=== PATIENT | male | born 1940 | race Caucasian/White ===

== ENCOUNTER → 2016-08-05 | Outpatient (CLI) | payer MEDICARE ==
[2016-08-05 13:22] LABS: Blood Urea Nitrogen 22 mg/dL (9-20); Non-African American GFR(MDRD) >60 (>60 ml/min/1.73 sqM)
--- NOTE | 2016-08-05 13:57 | CT ---
EXAMINATION TYPE: CT soft tissue neck w con DATE OF EXAM: 08/05/2016 1:49 PM COMPARISON: NONE HISTORY: sore throat CT DLP: 379.5 mGycm CONTRAST: Patient injected with 100 ml mL of Omnipaque 300. TECHNIQUE: Axial images at 3 mm thick sections. Reconstructed images in the coronal plane and sagitt al plane are reviewed. FINDINGS: Limited CT sections are obtained the lung apices. The lung apices appear clear. CT neck: The torus tubarius and fossa of Rosenmuller are normal. Front End [employer]er spaces are normal. Para nasal sinuses and mastoid air cells are clear. Parotid glands appear normal and symmetrical. Submandibular glands, are normal. Parapharyngeal spac es are normal. No suspicious adenopathy is evident. The hypopharynx appears within normal limits. Vocal cord level appear symmetrical. Thyroid as visualized is normal. Degenerative changes are within the cervical spine. Degenerative disc changes are present. The proximal ascending aortic arch is 4.0 cm in transverse dimension. This is incompletely visualized . There may be some fusiform prominence of the mid aortic arch measuring 3.8 cm. IMPRESSIONS: 1. No suspicious acute changes. 2. There is incomplete evaluation mild prominence of the aorta. Consider CT chest with contrast to ev aluate the aorta.
== END | disposition home or self-care (01) ==
LOC: RADCTMAIN 12:38
PROVIDERS: ATTEND Otolaryngology
DX: K22.8 Other specified diseases of esophagus (principal)
CPT/HCPCS: 82565; 84520; 70491; 36415; Q9967

== ENCOUNTER → 2016-08-26 | Outpatient (CLI) | payer MEDICARE ==
--- NOTE | 2016-08-26 07:36 | CT ---
EXAMINATION TYPE: CT chest/abdomen without contrast DATE OF EXAM: 08/26/2016 7:13 AM COMPARISON: NONE HISTORY: sore throat for 3 months. No chest complaints at time of service TECHNIQUE: Helical acquisition through the chest and abdomen were obtained without intravenous contra st. The data was reformatted in axial, coronal and sagittal projections. CT DLP: 461.8 mGycm Automated exposure control for dose reduction was used. FINDINGS: Lungs are clear. There is no significant axillary, mediastinal or hilar adenopathy. The root of the aorta is dilated at 4.3 cm. At the level of the proximal arch, the aorta is aneurysma l measuring 4 cm. At the level of the proximal descending thoracic aorta the aorta is aneurysmal haydee uring 3.3 cm. The level of the aortic hiatus, the aorta is normal in caliber measuring 2.6 cm. There is no pleural or pericardial fluid. The heart is not enlarged. There is some coronary artery and other vascular calcifications. Within the abdomen, the gallbladder is contracted. The liver and spleen appear normal. Both adrenal glands appear normal. There is a 7.6 mm nonobstructing calculus in the anterior lower pole calyx of the left kidney. The ki dneys are otherwise normal. Pancreas is unremarkable. There is no significant retroperitoneal adenopathy. Visualized bowel loops are normal. There is no free fluid and no free air identified. There is a tiny sclerotic focus in the right lateral aspect of the T2 vertebral body anteriorly. This may represent a bone island. No other sclerotic foci are seen. IMPRESSION: 1. 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 2. NONOBSTRUCTING LEFT RENAL CALCULUS.
== END | disposition home or self-care (01) ==
LOC: RADCTMAIN 06:50
PROVIDERS: ATTEND Thoracic Surgery (Cardiothoracic Vascular Surgery)
DX: I71.2 Thoracic aortic aneurysm, without rupture (principal); N20.0 Calculus of kidney
CPT/HCPCS: 71250

== ENCOUNTER 2017-04-22 10:55 | Emergency (ER) | payer MEDICARE ==
[2017-04-22] MEDS ORDERED: SODIUM CHLORIDE 0.9% 1,000 ML IV STA (11:21)
--- NOTE | 2017-04-22 11:26 | ED ---
General Adult HPI - General Chief complaint: Neuro Symptoms/Deficit Stated complaint: POSS CVA Time Seen by Provider: 04/22/17 11:12 Source: patient, family, RN notes reviewed Mode of arrival: ambulatory Limitations: no limitations - History of Present Illness Initial comments: Patient is a pleasant 77-year-old male presenting to emergency department with visual change. Onset was 5:15 this morning. Symptoms lasted 20 minutes. Patient had loss of left-sided vision in both right and left eye. Patient states he lost approximately three quarters of his vision on the left side of each eye. Patient did individually test each eye on his own. Patient states he was able to see on the right peripherally with both eyes. No history of similar symptoms previously. Symptoms have resolved and patient still feels normal at this time. Patient did see his rn correctional, Dr. Lowe prior to arrival who had concern for stroke and recommended he come to the emergency department. Patient states she has a "slight " headache after he was told there is potential of a stroke on the right frontal region. No headache earlier. No weakness. No confusion. No speech problems. - Related Data Home Medications Medication Instructions Recorded Confirmed Aspirin 81 mg PO HS 06/21/14 04/22/17 Hydrochlorothiazide 25 mg PO QAM 06/21/14 04/22/17 Multivitamin [Men's Multi-Vitamin] 1 tab PO QAM 11/10/15 04/22/17 Metoprolol Tartrate [Lopressor] 25 mg PO HS 04/22/17 04/22/17 Metoprolol Tartrate [Lopressor] 50 mg PO QAM 04/22/17 04/22/17 Naproxen Sodium [Aleve] 220 mg PO QAM 04/22/17 04/22/17 Allergies Allergy/AdvReac Type Severity Reaction Status Date / Time No Known Allergies Allergy Verified 04/22/17 11:36 Review of Systems ROS Statement: Those systems with pertinent positive or pertinent negative responses have been documented in the HPI. ROS Other: All systems not noted in ROS Statement are negative. Constitutional: Denies: fever Eyes: Reports: vision change. Denies: eye pain ENT: Denies: ear pain Respiratory: Denies: cough Cardiovascular: Denies: chest pain Endocrine: Denies: fatigue Gastrointestinal: Denies: abdominal pain Genitourinary: Denies: dysuria Musculoskeletal: Denies: back pain Skin: Denies: rash Neurological: Reports: headache (Slight right frontal headache). Denies: weakness, numbness, paresthesias, confusion Past Medical History Past Medical History: Myocardial Infarction ([place]), Prostate Disorder Additional Past Medical History / Comment(s): KIDNEY STONES/BLOOD IN URINE. RECENT RECTAL BLEEDING AND LOWER ABD PAIN. Last Myocardial Infarction Date:: 1986 History of Any Multi-Drug Resistant Organisms: None Reported Past Surgical History: Heart Catheterization Additional Past Surgical History / Comment(s): BILATERAL CATARACTS. Past Anesthesia/Blood Transfusion Reactions: Motion Sickness Additional Past Anesthesia/Blood Transfusion Reaction / Comment(s): HAS NEVER HAD GENERAL ANESTHESIA. Past Psychological History: No Psychological Hx Reported Smoking Status: Former smoker Past Alcohol Use History: Occasional Past Drug Use History: None Reported - Past Family History Father Family Medical History: CVA/TIA General Exam Limitations: no limitations General appearance: alert, in no apparent distress Head exam: Present: atraumatic Eye exam: Present: normal appearance, PERRL, EOMI. Absent: nystagmus Expanded Pupils: Regular, Round: Bilateral, Reactive: Bilateral Posterior chamber: Normal Inspection: Bilateral ENT exam: Present: normal oropharynx Neck exam: Present: normal inspection Respiratory exam: Present: normal lung sounds bilaterally Cardiovascular Exam: Present: regular rate, normal rhythm GI/Abdominal exam: Present: soft. Absent: tenderness Extremities exam: Present: normal inspection Neurological exam: Present: alert, oriented X3, CN II-XII intact. Absent: motor sensory deficit Expanded Patient oriented to: Present: person, place, time Speech: Present: fluid speech Cranial nerves: EOM's Intact: Normal, Facial Sensation: Normal Cerebellar function: Finger to Nose: Normal Sensory exam: Upper Extremity Light Touch: Normal, Lower Extremity Light Touch: Normal Motor strength exam: RUE: 5, LUE: 5, RLE: 5, LLE: 5 Eye Response: (4) open spontaneously Motor Response: (6) obeys commands Verbal Response: (5) oriented Psychiatric exam: Present: normal affect, normal mood Skin exam: Present: normal color Course Vital Signs 04/22/17 04/22/17 04/22/17 10:57 11:05 11:20 Temperature 97.7 F Pulse Rate 89 86 80 Respiratory 16 18 18 Rate Blood Pressure 180/90 184/92 184/96 O2 Sat by Pulse 98 98 98 Oximetry 04/22/17 04/22/17 04/22/17 11:35 11:50 11:55 Temperature Pulse Rate 78 79 75 Respiratory 18 18 18 Rate Blood Pressure 184/91 186/92 176/90 O2 Sat by Pulse 97 99 98 Oximetry 04/22/17 04/22/17 04/22/17 12:05 12:27 12:59 Temperature Pulse Rate 77 80 83 Respiratory 18 18 18 Rate Blood Pressure 178/90 168/87 184/76 O2 Sat by Pulse 100 97 96 Oximetry 04/22/17 04/22/17 13:27 14:19 Temperature Pulse Rate 84 84 Respiratory 18 18 Rate Blood Pressure 186/92 179/90 O2 Sat by Pulse 98 99 Oximetry EKG Findings - EKG Comments: EKG Findings:: Sinus rhythm [address] 142. QRS 112. QT 34. QTC 462. Left axis. Left anterior fascicular block. LVH. No acute ST change. Medical Decision Making - Medical Decision Making Patient reexamined and resting comfortably in bed. Patient remained symptom- free. Case discussed in detail with Dr. Thapa including chest x-ray and history of aneurysm. He did review report and previous computed tomography scan. Dr. Thapa is comfortable with patient going home. He does recommend discontinuing Aleve and taking full aspirin daily. He recommends follow-up in the beginning of the week. This was a clean to patient and patient is comfortable with being discharged. Patient is advised to return for worsening symptoms and advised of other symptoms related to stroke. - Lab Data Result diagrams: 04/22/17 11:20 04/22/17 11:20 Lab Results 04/22/17 04/22/17 04/22/17 Range/Units 11:20 11:20 11:20 WBC 7.5 (3.8-10.6) k/uL RBC 5.49 (4.30-5.90) m/uL Hgb 18.0 H (13.0-17.5) gm/dL Hct 54.2 H (39.0-53.0) % MCV 98.7 (80.0-100.0) fL MCH 32.8 (25.0-35.0) pg MCHC 33.2 (31.0-37.0) g/dL RDW 14.5 (11.5-15.5) % Plt Count 227 (150-450) k/uL Neutrophils % (Manual) 41 % Lymphocytes % (Manual) 40 % Monocytes % (Manual) 15 % Eosinophils % (Manual) 4 % Neutrophils # (Manual) 3.08 (1.3-7.7) k/uL Lymphocytes # (Manual) 3.00 (1.0-4.8) k/uL Monocytes # (Manual) 1.13 H (0-1.0) k/uL Eosinophils # (Manual) 0.30 (0-0.7) k/uL Nucleated RBCs 0 (0-0) /100 WBC Manual Slide Review Performed RBC Morphology Normal PT (9.0-12.0) sec INR (<1.2) APTT (22.0-30.0) sec Sodium 140 (137-145) mmol/L Potassium 4.0 (3.5-5.1) mmol/L Chloride 103 (98-107) mmol/L Carbon Dioxide 26 (22-30) mmol/L Anion Gap 11 mmol/L BUN 22 H (9-20) mg/dL Creatinine 1.19 (0.66-1.25) mg/dL Est GFR (MDRD) Af Amer >60 (>60 ml/min/1.73 sqM) Est GFR (MDRD) Non-Af 59 (>60 ml/min/1.73 sqM) Glucose 97 (74-99) mg/dL Calcium 9.7 (8.4-10.2) mg/dL Total Bilirubin 1.1 (0.2-1.3) mg/dL AST 64 H (17-59) U/L ALT 88 H (21-72) U/L Alkaline Phosphatase 77 (38-126) U/L Total Creatine Kinase 79 (55-170) U/L CK-MB (CK-2) 1.2 (0.0-2.4) ng/mL CK-MB (CK-2) Rel Index 1.5 Troponin I 0.015 (0.000-0.034) ng/mL Total Protein 8.8 H (6.3-8.2) g/dL Albumin 4.5 (3.5-5.0) g/dL 04/22/17 Range/Units 13:05 WBC (3.8-10.6) k/uL RBC (4.30-5.90) m/uL Hgb (13.0-17.5) gm/dL Hct (39.0-53.0) % MCV (80.0-100.0) fL MCH (25.0-35.0) pg MCHC (31.0-37.0) g/dL RDW (11.5-15.5) % Plt Count (150-450) k/uL Neutrophils % (Manual) % Lymphocytes % (Manual) % Monocytes % (Manual) % Eosinophils % (Manual) % Neutrophils # (Manual) (1.3-7.7) k/uL Lymphocytes # (Manual) (1.0-4.8) k/uL Monocytes # (Manual) (0-1.0) k/uL Eosinophils # (Manual) (0-0.7) k/uL Nucleated RBCs (0-0) /100 WBC Manual Slide Review RBC Morphology PT 12.3 H (9.0-12.0) sec INR 1.2 H (<1.2) APTT 25.8 (22.0-30.0) sec Sodium (137-145) mmol/L Potassium (3.5-5.1) mmol/L Chloride (98-107) mmol/L Carbon Dioxide (22-30) mmol/L Anion Gap mmol/L BUN (9-20) mg/dL Creatinine (0.66-1.25) mg/dL Est GFR (MDRD) Af Amer (>60 ml/min/1.73 sqM) Est GFR (MDRD) Non-Af (>60 ml/min/1.73 sqM) Glucose (74-99) mg/dL Calcium (8.4-10.2) mg/dL Total Bilirubin (0.2-1.3) mg/dL AST (17-59) U/L ALT (21-72) U/L Alkaline Phosphatase (38-126) U/L Total Creatine Kinase (55-170) U/L CK-MB (CK-2) (0.0-2.4) ng/mL CK-MB (CK-2) Rel Index Troponin I (0.000-0.034) ng/mL Total Protein (6.3-8.2) g/dL Albumin (3.5-5.0) g/dL - Radiology Data Radiology results: report reviewed (Computed tomography scan of the brain shows no acute process.), image reviewed (Chest x-ray shows no acute process. Redemonstration of the ascending thoracic aortic aneurysm.) Disposition Clinical Impression: Transient cerebral ischemia Disposition: HOME SELF-CARE Condition: Stable Instructions: Transient Ischemic Attack (ED) Additional Instructions: Full aspirin daily. Discontinue Aleve. Please follow-up with Dr. Thapa Tuesday. He will need carotid Doppler and echo done. Return for visual change, headache, confusion, speech problems, weakness, sensation problems, worsening symptoms or other concerns. Referrals: Molly Thapa MD [Primary Care Provider] - 1-2 days Perez Lowe MD [STAFF PHYSICIAN] - 1-2 days Time of Disposition: 15:03
[2017-04-22 11:48] LABS: Anion Gap 11 mmol/L; Aty Lym Flag Slight; CH 34.2; CHCM 34.8; Calcium 9.7 mg/dL (8.4-10.2); Carbon Dioxide 26 mmol/L (22-30); Chloride 103 mmol/L (98-107); Glucose 97 mg/dL (74-99); HCT 54.2 % (39.0-53.0); HDW 2.76; MCH 32.8 pg (25.0-35.0); MCHC 33.2 g/dL (31.0-37.0); MCV 98.7 fL (80.0-100.0); Mean Platelet Volume 7.3; Non-African American GFR(MDRD) 59 (>60 ml/min/1.73 sqM); RBC 5.49 m/uL (4.30-5.90); RDW 14.5 % (11.5-15.5); Sodium 140 mmol/L (137-145); Total Bilirubin 1.1 mg/dL (0.2-1.3); Total Protein 8.8 g/dL (6.3-8.2); WBC 7.5 k/uL (3.8-10.6); WBC (Perox) 7.77
[2017-04-22 11:56] VITALS: RESP 18
[2017-04-22 12:00] LABS: AST 64 U/L (17-59); Blood Urea Nitrogen 22 mg/dL (9-20)
[2017-04-22 12:01] LABS: ALT 88 U/L (21-72); Alkaline Phosphatase 77 U/L (38-126)
--- NOTE | 2017-04-22 12:32 | XR ---
EXAMINATION TYPE: XR chest 2V DATE OF EXAM: 04/22/2017 COMPARISON: 08/26/2016 HISTORY: Blurred vision and history of heart attack. TECHNIQUE: Frontal and lateral views of the chest are obtained. FINDINGS: There is no focal air space opacity, pleural effusion, or pneumothorax seen. There is tor tuosity of the descending and ascending thoracic aorta and there is known ascending thoracic aorta an eurysm. The cardiac silhouette size is within normal limits. The osseous structures are intact. IMPRESSION: 1. No acute pulmonary process. 2. Redemonstration of ascending thoracic aortic aneurysm, more accurately measured on CT.
[2017-04-22 12:33] LABS: Creatine Kinase MB 1.2 ng/mL (0.0-2.4); Troponin I 0.015 ng/mL (0.000-0.034)
--- NOTE | 2017-04-22 12:38 | CT ---
EXAMINATION TYPE: CT brain wo con DATE OF EXAM: 04/22/2017 COMPARISON: NONE HISTORY: 77 year-old male with weakness, neurological defectis, Possible CVA TECHNIQUE: Examination was done in axial plane without intravenous contrast. Coronal and sagittal r econstructions performed. CT DLP: 1100 mGycm Automated exposure control for dose reduction was used. FINDINGS: There is no evidence of acute intracranial hemorrhage, acute ischemic changes, mass, mass-effect, or extra-axial fluid collection. There is no effacement of cerebral sulci or basal subarachnoid cister ns. There is no hydrocephalus. There is no midline shift. Hollingsworth-white matter distinction is preserv ed. Mild to moderate generalized supratentorial volume loss. Some scattered mild patchy white matter hypo densities in both cerebral hemispheres. Stable focal calcification in the proximal M1 segment right M CA. Moderate mucosal thickening throughout the ethmoid air cells. Mastoid air cells well pneumatized. IMPRESSION: No acute intracranial abnormality seen. Stable mild to moderate atrophy and mild changes of chronic s mall vessel ischemic disease. Moderate chronic ethmoid sinus disease.
[2017-04-22 13:07] LABS: Add Differential Manual Differential
[2017-04-22 13:09] LABS: Manual Review Performed; Nucleated Red Blood Cells 0 /100 WBC (0-0); RBC Morphology Normal; Total Cells Counted 100
[2017-04-22 13:32] LABS: INR 1.2 (<1.2); Partial Thromboplastin Time 25.8 sec (22.0-30.0); Prothrombin Time 12.3 sec (9.0-12.0)
[2017-04-22 15:06] VITALS: BP 159/83; PULSE 76; TEMP 97.6
== END 2017-04-22 15:07 | disposition home or self-care (01) ==
LOC: EC 10:55
DX: G45.9 Transient cerebral ischemic attack, unspecified (principal); I71.2 Thoracic aortic aneurysm, without rupture; I25.2 Old myocardial infarction; Z87.891 Personal history of nicotine dependence; Z79.1 Long term (current) use of non-steroidal anti-inflammatories (NSAID); Z79.82 Long term (current) use of aspirin; Z79.899 Other long term (current) drug therapy; Z82.3 Family history of stroke
CPT/HCPCS: 36415; 70450; 71020; 80053; 82550; 82553; 84484; 85025; 85610; 85730; 93005; 96360; 96361; 99285

== ENCOUNTER → 2017-05-27 | Outpatient (CLI) | payer MEDICARE ==
[~2017-05-27] MED LIST: REGADENOSON 0.4 MG/5 ML SYRINGE IV ONE
--- NOTE | 2017-05-27 10:41 | EST ---
EXERCISE STRESS DATE OF SERVICE: 05/27/2017 AGE: 77 SEX: Male HT: 5'8" WT: 195 PROTOCOL: Lexiscan Cardiolite STAGE: DURATION OF EXERCISE: HEART RATE REST: 97 BLOOD PRESSURE REST: 146/81 MAXIMUM HEART RATE ACHIEVED: 121 MAXIMUM BLOOD PRESSURE: 147/110 85% MPHR: 100% MPHR: METS: INDICATIONS: Palpitations. CLINICAL INFORMATION: Patient was given Lexiscan injection over a period of 15 seconds. The heart rate was 97. Peak heart rate of 121 was noted. Maximum blood pressure of 147/110 mmHg was noted. The resting EKG shows normal sinus rhythm with intermittent PVCs noted. No ST-segment depression suggestive of ischemia was noted during Lexiscan injection. The results of the nuclear study will follow. KVNG / CHARLIEN: [id number] /
--- NOTE | 2017-05-27 11:28 | NM ---
"EXAMINATION TYPE: NM stress lexiscan cardiolite DATE OF EXAM: 05/27/2017 COMPARISON: NONE HISTORY: Abnormal echo TECHNIQUE: After the intravenous administration of 9.535 mCi Tc 99m Sestamibi - Cardiolite resting S PECT images acquired 45 minutes post injection. The patient received 0.4mg Lexiscan, 28 mCi Tc 99m Sestamibi - Stress images obtained 30 minutes post injection FINDINGS: Review of stress and rest SPECT images demonstrates fixed area of defect involving the inferior and i nferolateral myocardium, however, there does appear to be an area of reversibility involving the infe rior and inferolateral myocardium. Corresponding wall motion abnormality noted. Gated analysis show wood estimated left ventricular ejection fraction of 43 %. IMPRESSION: Large area of fixed defect involving the inferior and inferior lateral myocardium with fi ndings suggestive of a additional focus of stress-induced reversible ischemia involving the inferior and inferolateral myocardium. Correlate for stress-induced reversible ischemia. A [place] message has been communicated to Molly Thapa MD via the Topic | Critical Result sy stem on 05/27/2017 11:26 AM, Message ID [id number]."
== END | disposition home or self-care (01) ==
LOC: RADNMMAIN 07:46
PROVIDERS: ATTEND Internal Medicine
DX: I51.89 Other ill-defined heart diseases (principal)
CPT/HCPCS: 93017; 78452; A9500; J2785

== ENCOUNTER 2018-05-06 04:10 | Emergency (ER) | payer MEDICARE ==
[2018-05-06] MEDS ORDERED: ASPIRIN 81 MG PO STA (05:13)
--- NOTE | 2018-05-06 05:17 | ED ---
Eye Problem HPI - General Chief complaint: Eye Problems Stated complaint: Possible CAV Time Seen by Provider: 05/06/18 04:25 Source: patient, family Mode of arrival: ambulatory Limitations: no limitations - History of Present Illness Initial comments: This patient is a 78-year-old man who presents to be evaluated for change in his vision. The patient states that he got up to use the bathroom this morning. He states that while he was in the bathroom he noted that there was a small oblong area in the inferior field of vision eye laterally that he states was blanked out. He describes as being robby out. He states he had similar symptoms when he had a TIA about a year ago. He states that at that time the visual field loss was larger. Patient states that subsequently he has regained nearly the entire visual field. He denies headache. He denies any other neurologic symptoms. chief complaint: vision change -: minutes(s) Onset Description: sudden Location: both eyes Place: home If Injury: none Severity: mild Consistency: now resolved Associated Symptoms: none Treatments Prior to Arrival: none - Related Data Home Medications Medication Instructions Recorded Confirmed Hydrochlorothiazide 25 mg PO QAM 06/21/14 05/06/18 Multivitamin [Men's Multi-Vitamin] 1 tab PO QAM 11/10/15 05/06/18 Metoprolol Tartrate [Lopressor] 25 mg PO HS 04/22/17 05/06/18 Metoprolol Tartrate [Lopressor] 50 mg PO QAM 04/22/17 05/06/18 Aspirin 325 mg PO HS 06/08/17 05/06/18 Lisinopril [Zestril] 5 mg PO QAM 06/08/17 05/06/18 Rosuvastatin Calcium 5 mg PO QAM 06/08/17 05/06/18 Allergies Allergy/AdvReac Type Severity Reaction Status Date / Time RED IV DYE Allergy Unknown Uncoded 05/06/18 04:18 Review of Systems ROS Statement: Those systems with pertinent positive or pertinent negative responses have been documented in the HPI. ROS Other: All systems not noted in ROS Statement are negative. Constitutional: Denies: fever, chills, weakness Eyes: Reports: as per HPI, vision change. Denies: eye pain ENT: Denies: hearing loss Respiratory: Denies: cough, dyspnea Cardiovascular: Denies: chest pain, palpitations Gastrointestinal: Denies: abdominal pain, nausea, vomiting Skin: Denies: rash Neurological: Denies: headache, weakness, numbness, paresthesias, confusion, abnormal gait, vertigo Past Medical History Past Medical History: Hyperlipidemia, Hypertension, Myocardial Infarction ([place]) Additional Past Medical History / Comment(s): HX OF KIDNEY STONES. HAD LASER PROCEDURE FOR GLAUCOMA Last Myocardial Infarction Date:: 1987 History of Any Multi-Drug Resistant Organisms: None Reported Past Surgical History: Heart Catheterization Additional Past Surgical History / Comment(s): BILATERAL CATARACTS. COLONOSCOPIES Past Anesthesia/Blood Transfusion Reactions: No Reported Reaction Additional Past Anesthesia/Blood Transfusion Reaction / Comment(s): HAS NEVER HAD GENERAL ANESTHESIA. Past Psychological History: No Psychological Hx Reported Smoking Status: Former smoker Past Alcohol Use History: Occasional Past Drug Use History: None Reported - Past Family History Father Family Medical History: CVA/TIA General Exam Limitations: no limitations General appearance: alert, in no apparent distress Head exam: Present: atraumatic, normocephalic Eye exam: Present: normal appearance, PERRL, EOMI. Absent: scleral icterus, conjunctival injection, nystagmus ENT exam: Present: normal oropharynx, mucous membranes moist Respiratory exam: Present: normal lung sounds bilaterally. Absent: respiratory distress, wheezes, rales, rhonchi, stridor Cardiovascular Exam: Present: regular rate, normal rhythm, normal heart sounds. Absent: systolic murmur, diastolic murmur, rubs, gallop GI/Abdominal exam: Present: soft. Absent: distended, tenderness, guarding, rebound, mass Neurological exam: Present: alert, oriented X3, CN II-XII intact. Absent: motor sensory deficit Skin exam: Present: warm, dry, intact, normal color. Absent: rash Course Vital Signs 05/06/18 05/06/18 05/06/18 04:15 06:01 06:45 Temperature 98.4 F 97.8 F Pulse Rate 94 18 L 75 Respiratory 18 16 Rate Blood Pressure 141/84 133/92 O2 Sat by Pulse 97 97 Oximetry Medical Decision Making - Medical Decision Making This patient is 78-year-old man being evaluated for TIA with change in visual harris. His symptoms have resolved. I was going to admit the patient to have further studies as well as neurology evaluation, with the patient is adamant that he has not want stay and that he will follow-up to have the further studies performed. We discussed return parameters as well as appropriate follow -up. - Lab Data Result diagrams: 05/06/18 04:38 05/06/18 04:38 Lab Results 05/06/18 05/06/18 05/06/18 Range/Units 04:38 04:38 04:38 WBC 7.2 (3.8-10.6) k/uL RBC 5.59 (4.30-5.90) m/uL Hgb 17.9 H (13.0-17.5) gm/dL Hct 53.5 H (39.0-53.0) % MCV 95.6 (80.0-100.0) fL MCH 32.0 (25.0-35.0) pg MCHC 33.5 (31.0-37.0) g/dL RDW 13.4 (11.5-15.5) % Plt Count 234 (150-450) k/uL Neutrophils % 35 % Lymphocytes % 43 % Monocytes % 9 % Eosinophils % 8 % Basophils % 1 % Neutrophils # 2.5 (1.3-7.7) k/uL Lymphocytes # 3.1 (1.0-4.8) k/uL Monocytes # 0.6 (0-1.0) k/uL Eosinophils # 0.6 (0-0.7) k/uL Basophils # 0.1 (0-0.2) k/uL Sodium 140 (137-145) mmol/L Potassium 4.1 (3.5-5.1) mmol/L Chloride 104 (98-107) mmol/L Carbon Dioxide 28 (22-30) mmol/L Anion Gap 8 mmol/L BUN 29 H (9-20) mg/dL Creatinine 1.36 H (0.66-1.25) mg/dL Est GFR (CKD-EPI)AfAm 57 (>60 ml/min/1.73 sqM) Est GFR (CKD-EPI)NonAf 49 (>60 ml/min/1.73 sqM) Glucose 110 H (74-99) mg/dL Calcium 9.4 (8.4-10.2) mg/dL Troponin I 0.013 (0.000-0.034) ng/mL Disposition Clinical Impression: TIA (transient ischemic attack) Disposition: HOME SELF-CARE Condition: Good Instructions: Transient Ischemic Attack (ED) Is patient prescribed a controlled substance at d/c from ED?: No Referrals: Molly Thapa MD [Primary Care Provider] - 1-2 days Krystle Fajardo MD [STAFF PHYSICIAN] - 1-2 days
[2018-05-06 05:25] LABS: Basophils # (A) 0.1 k/uL (0-0.2); Basophils % (A) 1 %; Eosinophils # (A) 0.6 k/uL (0-0.7); Eosinophils % (A) 8 %; HCT 53.5 % (39.0-53.0); HGB 17.9 gm/dL (13.0-17.5); Lymphocytes # (A) 3.1 k/uL (1.0-4.8); Lymphocytes % (A) 43 %; MCHC 33.5 g/dL (31.0-37.0); MCV 95.6 fL (80.0-100.0); Mean Platelet Volume 6.8; Monocytes # (A) 0.6 k/uL (0-1.0); Monocytes % (A) 9 %; Neutrophils # (A) 2.5 k/uL (1.3-7.7); Neutrophils % (A) 35 %; Platelet Count 234 k/uL (150-450); RBC 5.59 m/uL (4.30-5.90); RDW 13.4 % (11.5-15.5); WBC 7.2 k/uL (3.8-10.6)
[2018-05-06 05:44] LABS: Calcium 9.4 mg/dL (8.4-10.2)
[2018-05-06 05:58] LABS: Potassium 4.1 mmol/L (3.5-5.1)
--- NOTE | 2018-05-06 06:00 | CT ---
EXAM: CT Head Without Intravenous Contrast CLINICAL HISTORY: ITS.REASON CT Reason: Pain TECHNIQUE: Axial computed tomography images of the head/brain without intravenous contrast. CTDI is 44 mGy and DLP is 942 mGy-cm. This CT exam was performed using one or more of the following dose reduction techniques: automated exposure control, adjustment of the mA and/or kV according to patient size, and/or use of iterative reconstruction technique. COMPARISON: CT brain 04/22/17 FINDINGS: Brain: No hemorrhage or mass effect. Since 2017, there is new encephalomalacia in the right parietal lobe. Ventricles: No hydrocephalus. Bones/joints: Unremarkable. Soft tissues: Unremarkable. Sinuses: Moderate mucosal thickening of the ethmoid sinus. Mastoid air cells: Clear. IMPRESSION: No acute hemorrhage, hydrocephalus, or mass effect. 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 Moderate ethmoid sinus disease.
[2018-05-06 06:51] VITALS: BP 133/92; PULSE 75; RESP 16; TEMP 97.8
== END 2018-05-06 06:51 | disposition home or self-care (01) ==
LOC: EC 04:10
DX: G45.9 Transient cerebral ischemic attack, unspecified (principal); E78.5 Hyperlipidemia, unspecified; I10 Essential (primary) hypertension; I25.2 Old myocardial infarction; Z87.891 Personal history of nicotine dependence; Z91.041 Radiographic dye allergy status; Z79.82 Long term (current) use of aspirin; Z79.899 Other long term (current) drug therapy; Z98.890 Other specified postprocedural states; Z82.3 Family history of stroke
CPT/HCPCS: 36415; 70450; 80048; 84484; 85025; 99284